=== PATIENT | female | born 1950 | race African-American/Black ===

== ENCOUNTER 2019-12-13 05:29 | Inpatient (IN) ==
[2019-12-07 11:19] LABS: Basophils % 0.5 % (0.0-0.8); Eosinophils # 0.2 10*3/uL (0.0-0.87); Eosinophils % 3.7 % (0.00-10.9); Hematocrit 41.8 VOL% (35.7-47.0); Hemoglobin 13.4 GM/DL (12.0-16.0); Immature Granulocytes % 0.4 %; Immature Granulocytes Absolute 0.02 #; Lymphocytes # 2.2 10*3/uL (1.4-4.0); Lymphocytes % 38.2 % (21.3-54.2); Mean Corpuscular HGB Conc 32.1 GM/DL (32-36); Mean Corpuscular Volume 89.1 FL (87-102); Mean Platelet Volume 10.1 FL (9.6-12.0); Monocytes % 12.9 % (1.7-12.7); Neutrophils % 44.3 % (38.7-73.9); Platelet Count 312 T/CUMM (130-400); Red Blood Count 4.69 MC/CUMM (3.8-5.5); Red Cell Distribution Width 13.2 % (9.3-17.3); White Blood Count 5.7 T/CUMM (4-12)
[2019-12-07 11:29] LABS: Apearance,Urine Slightly Hazy (Clear); Bacteria,Urine Few /HPF (Few); Bilirubin,Urine Negative (Negative); Blood, Urine Negative (Negative); Glucose,Urine (UA) Negative (Negative); Ketones,Urine Negative (Negative); Mucus,Urine Few /LPF (Occasional); Nitrite,Urine Positive (Negative); Protein,Urine Negative; RBC,Urine 10 /HPF (0-4); Squamous Epithelial Cell,Urine Occasional /HPF (0-10); Urine Color Yellow (Yellow); Urine Specific Gravity 1.019 (1.001-1.035); WBC,Urine 9 /HPF (0-6)
[2019-12-07 11:31] LABS: PT Patient Result 10.3 SECS (9.8-11.9); Partial Thromboplastin Time 25.7 SECS (23.9-33.8)
[2019-12-07 11:38] LABS: Bilirubin,Total 0.4 MG/DL (0.2-1.0); Calcium 9.6 MG/DL (8.5-10.1); Osmolality,Calculated 283.1 MOS/KG (273-304); Total Protein 8.5 G/DL (6.4-8.3)
[2019-12-13] MEDS ORDERED: ceFAZolin 1,000 MG VIAL ONE ×2 (05:56→14:05)
[2019-12-13] MEDS ORDERED: VANCOMYCIN 1,000 MG VIAL ONE (05:56)
[2019-12-13] MEDS ORDERED: LIDOCAINE 1% 5 ML VIAL ONE (06:04)
[2019-12-13] MEDS ORDERED: DEXAMETHASONE 4 MG/1 ML VIAL ONE (06:04)
[2019-12-13] MEDS ORDERED: BUPIVACAINE MPF 0.25% 30 ML VIAL ONE (06:04)
[2019-12-13] MEDS ORDERED: FAMOTIDINE 20 MG TABLET PO ONE (06:20)
[2019-12-13] MEDS ORDERED: ACETAMINOPHEN 500 MG TABLET PO ONE (06:20)
[2019-12-13] MEDS ORDERED: DIAZEPAM 5 MG TABLET PO ONE (06:20)
[2019-12-13] MEDS ORDERED: GABAPENTIN 400 MG CAPSULE PO ONE (06:20)
[2019-12-13] MEDS ORDERED: ACETAMINOPHEN 500 MG TABLET ONE (06:23)
[2019-12-13] MEDS ORDERED: FAMOTIDINE 20 MG TABLET ONE (06:23)
[2019-12-13] MEDS ORDERED: DIAZEPAM 5 MG TABLET ONE (06:23)
[2019-12-13] MEDS ORDERED: GABAPENTIN 400 MG CAPSULE ONE (06:23)
[2019-12-13] MEDS ORDERED: LACTATED RINGERS 1,000 ML IV SCH (06:30)
[2019-12-13] MEDS ORDERED: BACITRACIN OINT 0.9 GM PACK TOP ONE (06:51)
[2019-12-13] MEDS ORDERED: diphenhydrAMINE CAP 25 MG CAPSULE PO PRN (09:02)
[2019-12-13] MEDS ORDERED: MAGNESIUM HYDROXIDE SUSP 30 ML UDCUP PO PRN (09:02)
[2019-12-13] MEDS ORDERED: ZALEPLON 5 MG CAPSULE PO PRN (09:02)
[2019-12-13] MEDS ORDERED: MORPHINE 4 MG/1 ML VIAL IV PRN ×2 (09:02)
[2019-12-13] MEDS ORDERED: ONDANSETRON 4 MG/2 ML VIAL IV PRN ×2 (09:02→09:16)
[2019-12-13] MEDS: LACTATED RINGERS 1,000 ML IV SCH ×2 (09:10→18:28)
[2019-12-13] MEDS ORDERED: PROMETHAZINE INJ 25 MG in SODIUM CHLORIDE 0.9% 50 ML IV PRN (09:16)
[2019-12-13] MEDS ORDERED: MEPERIDINE 25 MG/1 ML VIAL IV PRN (09:16)
[2019-12-13] MEDS ORDERED: diphenhydrAMINE 50 MG/1 ML VIAL IV PRN (09:16)
[2019-12-13] MEDS ORDERED: propofoL 200 MG/20 ML VIAL IV ONE (09:17)
[2019-12-13] MEDS ORDERED: MIDAZOLAM 2 MG/2 ML VIAL ONE (09:17)
[2019-12-13] MEDS ORDERED: fentaNYL 100 MCG/2 ML VIAL ONE (09:17)
[2019-12-13] MEDS ORDERED: PHENYLEPHRINE DRIP 20 MG/250 ML PREMIX IV ONE (09:17)
[2019-12-13] MEDS ORDERED: TRANEXAMIC ACID 1,000 MG/10 ML VIAL ONE (09:18)
[2019-12-13] MEDS ORDERED: PHENYLEPHRINE 1 MG/10 ML SYRINGE IV ONE (09:18)
[2019-12-13 09:29] LABS: Apearance,Urine CLEAR (Clear); Bilirubin,Urine Negative (Negative); Blood, Urine Negative (Negative); Glucose,Urine (UA) Negative (Negative); Hyaline Casts,Urine 3 /LPF (0-3); Ketones,Urine Negative (Negative); Mucus,Urine Occasional /LPF (Occasional); Nitrite,Urine Negative (Negative); Protein,Urine Negative; RBC,Urine 7 /HPF (0-4); Squamous Epithelial Cell,Urine Occasional /HPF (0-10); Urine Color Yellow (Yellow); Urine Specific Gravity 1.027 (1.001-1.035); WBC,Urine 1 /HPF (0-6)
[2019-12-13] MEDS ORDERED: KETOROLAC 30 MG/1 ML VIAL ONE (09:31)
[2019-12-13] MEDS: KETOROLAC 30 MG/1 ML VIAL IV SCH ×4 (09:32→21:19)
[2019-12-13] MEDS ORDERED: hydrALAZINE 20 MG/1 ML VIAL ONE (12:39)
[2019-12-13] MEDS ORDERED: hydrALAZINE 20 MG/1 ML VIAL IV ONE (12:42)
[2019-12-13] MEDS: ceFAZolin 1,000 MG in SYRINGE 1 EACH IV SCH ×2 (14:31→21:19)
[2019-12-13] MEDS ORDERED: hydrALAZINE 20 MG/1 ML VIAL IV PRN (17:19)
[2019-12-13] MEDS ORDERED: BUTALBITAL/ACETAMIN/CAFFEINE 50-325-40 MG TABLET PO PRN (17:21)
[2019-12-13] MEDS: DOCUSATE SODIUM 100 MG CAPSULE PO SCH (21:20)
[2019-12-14] MEDS: LACTATED RINGERS 1,000 ML IV SCH (02:37)
[2019-12-14] MEDS: FONDAPARINUX 2.5 MG/0.5 ML SYRINGE SUBCUT SCH (02:38)
[2019-12-14] MEDS: KETOROLAC 30 MG/1 ML VIAL IV SCH (02:38)
[2019-12-14 04:38] LABS: Basophils % 0.4 % (0.0-0.8); Eosinophils # 0.2 10*3/uL (0.0-0.87); Eosinophils % 2.5 % (0.00-10.9); Hematocrit 31.5 VOL% (35.7-47.0); Hemoglobin 10.4 GM/DL (12.0-16.0); Immature Granulocytes % 0.4 %; Immature Granulocytes Absolute 0.03 #; Lymphocytes # 1.4 10*3/uL (1.4-4.0); Lymphocytes % 17.8 % (21.3-54.2); Mean Platelet Volume 9.5 FL (9.6-12.0); Monocytes % 13.9 % (1.7-12.7); Platelet Count 218 T/CUMM (130-400); Red Blood Count 3.54 MC/CUMM (3.8-5.5); Red Cell Distribution Width 13.1 % (9.3-17.3)
[2019-12-14 04:55] LABS: Calcium 8.6 MG/DL (8.5-10.1); Osmolality,Calculated 281.4 MOS/KG (273-304)
[2019-12-14 05:06] LABS: Free T4 (Free Thyroxine) 0.96 NG/DL (0.76-1.46); Risk Ratio 4.64; Thyroid Stimulating Hormone 0.321 uIU/ml (0.358-3.74); VLDL CHOLESTEROL 27.6 MG/DL
[2019-12-14] MEDS ORDERED: amLODIPine 5 MG TABLET PO SCH (09:00)
[2019-12-14] MEDS: DOCUSATE SODIUM 100 MG CAPSULE PO SCH ×2 (10:19→21:13)
[2019-12-14] MEDS: CEFUROXIME 500 MG TABLET PO SCH ×2 (10:19→21:13)
[2019-12-14] MEDS: amLODIPine 2.5 MG TABLET PO SCH (10:19)
[2019-12-14] MEDS: LACTOBACILLUS RHAMNOSUS GG CAPSULE PO SCH ×2 (10:19→21:13)
[2019-12-15] MEDS: FONDAPARINUX 2.5 MG/0.5 ML SYRINGE SUBCUT SCH (03:56)
[2019-12-15 05:25] LABS: Basophils % 0.4 % (0.0-0.8); Eosinophils # 0.4 10*3/uL (0.0-0.87); Eosinophils % 5.4 % (0.00-10.9); Hematocrit 29.9 VOL% (35.7-47.0); Hemoglobin 9.7 GM/DL (12.0-16.0); Immature Granulocytes % 0.4 %; Immature Granulocytes Absolute 0.03 #; Lymphocytes # 1.6 10*3/uL (1.4-4.0); Lymphocytes % 23.5 % (21.3-54.2); Mean Corpuscular HGB Conc 32.4 GM/DL (32-36); Mean Platelet Volume 9.7 FL (9.6-12.0); Monocytes % 17.3 % (1.7-12.7); Platelet Count 210 T/CUMM (130-400); Red Blood Count 3.36 MC/CUMM (3.8-5.5); Red Cell Distribution Width 13.3 % (9.3-17.3); White Blood Count 6.9 T/CUMM (4-12)
[2019-12-15 06:06] LABS: Eosinophils 8 % (0-10); Hypochromasia 1+; Lymphocytes 17 % (20-55); Microcytosis 1+; Ovalocytes Slight; Platelet Estimate Normal; Segmented Neutrophils 61 % (50-85); Total Cells Counted 100
[2019-12-15] MEDS ORDERED: LEVOTHYROXINE 50 MCG TABLET PO SCH (06:30)
[2019-12-15 07:26] VITALS: BP 130/73
[2019-12-15] MEDS: CEFUROXIME 500 MG TABLET PO SCH (08:28)
[2019-12-15] MEDS: amLODIPine 2.5 MG TABLET PO SCH (08:28)
[2019-12-15] MEDS: DOCUSATE SODIUM 100 MG CAPSULE PO SCH (08:28)
[2019-12-15] MEDS: LACTOBACILLUS RHAMNOSUS GG CAPSULE PO SCH (08:28)
== END 2019-12-15 12:00 | disposition home health service (06) | DRG 470 ==
LOC: N.SDSINP 05:29 → N.3E 16:01
PROVIDERS: ADMIT Orthopaedic Surgery; ATTEND Orthopaedic Surgery